=== PATIENT | female | born 1985 | race Caucasian/White ===

== ENCOUNTER → 2021-03-06 12:40 | Outpatient (CLI) | payer BC, SELFPAY ==
[2021-03-06 14:41] LABS: Adenovirus,PCR Not Detected (NotDetected); Bordetella Pertussis Not Detected (NotDetected); Chlamydophila Pneumoniae, PCR Not Detected (NotDetected); Coronavirus 229E Not Detected (NotDetected); Coronavirus NL63 Not Detected (NotDetected); Coronavirus OC43 Not Detected (NotDetected); Coronovirus HKU1,PCR Not Detected (NotDetected); Human Metapneumovirus Not Detected (NotDetected); Influenza A, PCR Not Detected (NotDetected); Influenza AH1, 2009 Not Detected (NotDetected); Influenza AH1, PCR Not Detected (NotDetected); Influenza AH3,PCR Not Detected (NotDetected); Influenza B, PCR Not Detected (NotDetected); Mycoplasma Pneumoniae, PCR Not Detected (NotDetected); Parainfluenza 1, PCR Not Detected (NotDetected); Parainfluenza 2, PCR Not Detected (NotDetected); Parainfluenza 3, PCR Not Detected (NotDetected); Parainfluenza 4, PCR Not Detected (NotDetected); Respiratory Syncytial Virus Not Detected (NotDetected); Rhinovirus/Enterovirus Not Detected (NotDetected)
[2021-03-06 15:05] LABS: Basophils % 0.5 % (0.1-2.0); Eosinophils % 0.5 % (0.1-12.0); Hematocrit 48.3 % (37.0-47.0); Hemoglobin 15.5 g/dL (12.2-16.2); Lymphocytes % 25.8 % (10-50); Mean Corpuscular Hemoglobin 29.2 pg (27.0-31.2); Mean Corpuscular Volume 91.1 fl (81-99); Mean Platelet Volume 10.2 fl (7.4-10.4); Monocytes # 0.3 K/mm3 (0.1-1.0); Monocytes % 3.5 % (1.7-9.3); Neutrophils # 5.5 K/mm3 (1.8-7.8); Neutrophils % 69.7 % (37.0-80.0); Platelet Count 239 K/mm3 (142-424); Red Cell Distribution Width 13.6 % (11.5-17.5); White Blood Count 7.9 K/mm3 (4.8-10.8)
[2021-03-06 15:18] LABS: Strep Scrn Group A (Rapid) Negative (Negative)
[2021-03-07 10:23] LABS: Coronavirus 19, PCR Detected (NotDetected)
== END ==
PROVIDERS: PCP Family Medicine; Visit Provider Nurse Practitioner Family
DX: Z20.822 Contact with and (suspected) exposure to COVID-19 (principal); U07.1 COVID-19
CPT/HCPCS: 36415; 85025; 87430; 87581; 87633; 87798

== ENCOUNTER → 2023-01-29 08:52 | Outpatient (CLI) | payer OTHER, SELFPAY ==
--- NOTE | 2023-01-29 08:52 | US_ITS ---
PROCEDURE: US TRANSVAGINAL CLINICAL INDICATION: US TV for RLQP COMPARISON: No exams were available for comparison FINDINGS: Transvaginal sonographic images were obtained of the pelvis. UTERUS: 9cm x 6cmx 5cm with a combined endometrial thickness of 7.3mm. There is a 0.7 cm x 0.9 cm by 0.7 cm anterior fibroid. There are several small nabothian cysts. LEFT OVARY: [id number] with a volume of 7.2ml.There are several small follicles. RIGHT OVARY: 3cmx [id number] with a volume of 8.2ml. The right ovary has a polycystic appearance. Both ovaries are seen and appear normal. Doppler flow to both ovaries are seen. There is no fluid in the cul-de-sac. IMPRESSION: 1. Anteverted bulky uterus. The endometrium appears normal. 2. There is a 0.9 cm anterior intramural fibroid. 3. There are several follicles on both ovaries. The right ovary has more of a polycystic appearance. 4. No fluid in the cul-de-sac. Dictated by: Sundar Sethi MD 01/29/2023 17:59 Sundar Sethi MD in [facility] 01/29/2023 17:59
== END ==
PROVIDERS: PCP Family Medicine; Visit Provider Nurse Practitioner Obstetrics & Gynecology
DX: R10.31 Right lower quadrant pain (principal)
CPT/HCPCS: 76830